=== PATIENT | female | born 1990 | race African-American/Black ===

== ENCOUNTER 2017-08-12 22:31 | Emergency (ER) | payer SELFPAY ==
[~2017-08-12] VITALS: Ht 170.2 cm; Wt 74.8 kg
--- OUTSIDE RECORDS SUMMARY | 2017-08-12 22:33 | XMS REPORT | Clinical Summary ---
Author Author [facility] Organization [facility] Address Unknown Phone Unavailable Care Team Providers Care [employer] Sales Counter Manager Name Role Phone Asked, Pcp PCP Unavailable Allergies No Known Allergies Current Medications Prescription Sig. Disp. Refills Start End Date Status Date traMADol (ULTRAM) 50 mg Take 50 mg by mouth every Active tablet 6 (six) hours as needed for moderate pain. pantoprazole (PROTONIX) Take 1 tablet (20 mg 30 tablet 0 09/05/19 Discontin 20 MG EC tablet total) by mouth daily for 17 17 ued 30 days. ondansetron (ZOFRAN) 4 MG Take 1 tablet (4 mg 120 tablet 0 09/05/19 09/15/19 Discontin tablet total) by mouth every 8 17 17 ued (eight) hours as needed for nausea or vomiting for up to 30 days. traMADol (ULTRAM) 50 mg Take 1 tablet (50 mg 9 tablet 0 09/05/19 tablet total) by mouth every 6 17 17 (six) hours as needed for moderate pain for up to 3 days. omeprazole (PriLOSEC) 10 Take 20 mg by mouth 02/06/20 09/15/19 Discontin MG capsule daily. 16 17 ued ciprofloxacin (CIPRO) 500 Take 1 tablet (500 mg 14 tablet 0 09/08/19 09/17/19 Discontin MG tablet total) by mouth 2 (two) 17 17 ued times a day for 7 days. Lactobacillus Take 1 packet (1 g total) 90 packet 0 09/08/19 Discontin acidoph-L.bulgar by mouth 3 (three) times 17 17 ued (LACTINEX) 100 million a day for 30 days. cell tablet metroNIDAZOLE (FLAGYL) Take 1 tablet (500 mg 21 tablet 0 09/08/19 Discontin 500 MG tablet total) by mouth 3 (three) 17 17 ued times a day for 7 days. acetaminophen-codeine Take 1 tablet by mouth 40 tablet 0 09/08/19 Discontin (TYLENOL WITH CODEINE #3) every 4 (four) hours as ued 300-30 mg per tablet needed for moderate pain for up to 15 days. ondansetron ODT Take 1 tablet (4 mg 10 tablet 0 09/17/19 09/20/19 (ZOFRAN-ODT) 4 MG total) by mouth every 6 17 disintegrating (six) hours as needed for tabletIndications: nausea or vomiting for up Intractable vomiting with to 3 days. nausea, unspecified vomiting type QUEtiapine (SEROquel) 25 Take 0.5 tablets (12.5 mg 8 tablet 0 10/02/19 MG tablet total) by mouth every morning for 15 days. QUEtiapine (SEROquel) 25 Take 0.5 tablets (12.5 mg 8 tablet 0 10/02/19 MG tablet total) by mouth daily for 17 15 days. QUEtiapine (SEROquel) 25 Take 1 tablet (25 mg 15 tablet 0 09/17/19 10/02/19 MG tablet total) by mouth nightly for 15 days. lansoprazole (PREVACID) Take 1 capsule (30 mg 30 capsule 0 02/08/20 03/09/20 30 MG capsule total) by mouth daily for 17 30 days. sucralfate (CARAFATE) 100 Take 10 mL (1 g total) by 1200 mL 0 03/09/20 mg/mL suspension mouth 4 (four) times a day for 30 days. famotidine (PEPCID) 20 MG Take 1 tablet (20 mg 30 tablet 0 02/08/20 02/23/20 tablet total) by mouth 2 (two) times a day for 15 days. ondansetron ODT Take 1 tablet (4 mg 15 tablet 0 02/08/20 02/13/20 (ZOFRAN-ODT) 4 MG total) by mouth every 8 disintegrating tablet (eight) hours as needed for nausea or vomiting for up to 5 days. ondansetron ODT (ZOFRAN Take 1 tablet (8 mg 30 tablet 0 03/12/20 ODT) 8 MG disintegrating total) by mouth every 8 17 17 tablet (eight) hours as needed for nausea or vomiting for up to 30 days. metoclopramide (REGLAN) Take 1 tablet (10 mg 30 tablet 0 03/12/20 10 MG tablet total) by mouth every 6 17 17 (six) hours for 30 days. dicyclomine (BENTYL) 20 Take 1 tablet (20 mg 60 tablet 0 03/12/20 mg tablet total) by mouth 2 (two) 17 17 times a day for 30 days. Active Problems Problem Noted Date Major depressive disorder with single episode 09/15/2016 Intractable nausea and vomiting 09/05/2016 Proctocolitis without complication 09/05/2016 Marijuana abuse 06/15/2016 Intractable cyclical vomiting with nausea 06/13/2016 Bilious vomiting with nausea 01/29/2016 Encounters Date Type Specialty Care Team Description 03/11/2017 Emergency Emergency Medicine Mendez Matamoros MD Psychogenic vomiting with - nausea (Primary Dx) 03/12/2017 02/07/2017 Emergency Emergency Medicine Steve Victor MD Nausea and vomiting, intractability of vomiting not specified, unspecified vomiting type (Primary Dx); Gastroparesis 02/05/2017 Emergency Emergency Medicine 09/17/2016 Documentation General Dentist/Owner Carey Werner LPC 09/16/2016 Documentation Psychiatry Laurie Fish MD 09/14/2016 Emergency General Internal Medicine Jalen Weinstein Intractable vomiting with - MD Benigno nausea, unspecified 09/16/2016 Reji Coughlin MD vomiting type (Primary Dx); Generalized abdominal pain; Marijuana abuse 09/07/2016 Abstract General Internal Medicine Kimberly Godfrey RN 09/05/2016 Emergency Emergency Medicine 09/04/2016 [facility] General Internal Medicine Yoseph Pope MD Intractable abdominal - Encounter Cholo Santiago MD pain (Primary Dx); 09/07/2016 Gastroesophageal reflux disease without esophagitis; Gastroparesis; Intractable vomiting with nausea, unspecified vomiting type; Dehydration; Metabolic acidosis; Lactic acidosis; Leukocytosis, unspecified type after 08/11/2016 Family History Medical History Relation Name Comments Cancer Maternal Grandfather Diabetes Maternal Grandmother Relation Name Status Comments Father appendicitis, acid reflux Maternal Grandfather Maternal Grandmother Social History Tobacco Use Types Packs/Day Years Used Date Current Some Day Smoker Alcohol Use Drinks/Week oz/Week Comments Yes occassionally Sex Assigned at Date Recorded Not on file Last Filed Vital Signs Vital Sign Reading Time Taken Blood Pressure 130/105 03/11/2017 6:32 PM CDT Pulse 69 03/11/2017 6:32 PM CDT Temperature 36.7 C (98.1 F) 03/11/2017 6:32 PM CDT Respiratory Rate 22 03/11/2017 6:32 PM CDT Oxygen Saturation 99% 03/11/2017 6:32 PM CDT Inhaled Oxygen - - Concentration Weight 69.8 kg (153 lb 15.9 oz) 09/14/2016 4:18 PM CDT Height 170.2 cm (5' 7") 02/07/2017 1:18 AM CDT Body Mass Index 24.12 09/14/2016 4:18 PM CDT Plan of Treatment Health Maintenance Due Date Last Done Comments PAP SMEAR 2013 INFLUENZA VACCINE 01/19/2017 Results * US Gallbladder (03/12/2017 4:05 AM) Specimen Performing Laboratory [facility] [place] [address] Narrative Examination:US GALLBLADDER Clinical History: CHOLELITHIASIS Comparison: None. Findings: Gallbladder ultrasound was performed. There is no evidence of gallstone. No gallbladder wall thickening is seen. The common bile duct measures 0.3 cm. The portal vein is patent. IMPRESSION: 1. Unremarkable gallbladder ultrasound. [facility]-[id number] Procedure Note Interface, Radiology Results Incoming - 03/12/2017 4:09 AM CDT Examination: US GALLBLADDER Clinical History: CHOLELITHIASIS Comparison: None. Findings: Gallbladder ultrasound was performed. There is no evidence of gallstone. No gallbladder wall thickening is seen. The common bile duct measures 0.3 cm. The portal vein is patent. IMPRESSION: 1. Unremarkable gallbladder ultrasound. [facility]-[id number] * CT Renal Stone Protocol (03/12/2017 1:55 AM) Specimen Performing Laboratory [facility] [address] [place] [address] RENAL STONE PROTOCOL CLINICAL INDICATION:r o right kindey stone TECHNIQUE: Multidetector CT of the abdomen and pelvis was performed without intravenous administration of iodinated contrast with multiplanar reformats. CT scans are performed using radiation dose reduction techniques (iterative reconstruction and/or automated exposure control). Technical factors are evaluated and adjusted to ensure appropriate moderation of exposure. Automated dose management technology is applied to adjust radiation exposure while achieving a diagnostic quality image. COMPARISON:None. FINDINGS: Lung bases:Clear. Liver:Normal. Gallbladder and biliary:Normal. Pancreas:Normal. Spleen:Normal. Gastrointestinal:Large and small bowel are normal in caliber. Appendix is visualized and appears normal. Adrenals:Normal. Kidneys and ureters:No mass or hydronephrosis. Urinary bladder:Normal. Lymph nodes:No enlarged lymph nodes in the abdomen or pelvis. Peritoneum:No ascites or free air. Trace physiologic fluid within the pelvis. Vascular:Unremarkable. Reproductive organs:Uterus is normal. Unremarkable adnexae. Abdominal wall:Unremarkable. Bones:No acute osseous abnormalities. IMPRESSION: Negative CT for acute pathology within the abdomen and pelvis. [facility]-[id number] Procedure Note [facility], Radiology Results Incoming - 03/12/2017 2:[address] RENAL STONE PROTOCOL CLINICAL INDICATION: r o right kindey stone TECHNIQUE: Multidetector CT of the abdomen and pelvis was performed without intravenous administration of iodinated contrast with multiplanar reformats. CT scans are performed using radiation dose reduction techniques (iterative reconstruction and/or automated exposure control). Technical factors are evaluated and adjusted to ensure appropriate moderation of exposure. Automated dose management technology is applied to adjust radiation exposure while achieving a diagnostic quality image. COMPARISON: None. FINDINGS: Lung bases: Clear. Liver: Normal. Gallbladder and biliary: Normal. Pancreas: Normal. Spleen: Normal. Gastrointestinal: Large and small bowel are normal in caliber. Appendix is visualized and appears normal. Adrenals: Normal. Kidneys and ureters: No mass or hydronephrosis. Urinary bladder: Normal. Lymph nodes: No enlarged lymph nodes in the abdomen or pelvis. Peritoneum: No ascites or free air. Trace physiologic fluid within the pelvis. Vascular: Unremarkable. Reproductive organs: Uterus is normal. Unremarkable adnexae. Abdominal wall: Unremarkable. Bones: No acute osseous abnormalities. IMPRESSION: Negative CT for acute pathology within the abdomen and pelvis. [facility]-[id number] * XR Abdomen 1 Vw (03/11/2017 10:16 PM) Specimen Performing Laboratory [facility] [address] [place] [address] Narrative Examination:XR ABDOMEN 1 VW Clinical History: ABDOMINAL PAIN Comparison: None. Findings: Single frontal view of the abdomen is obtained. The bowel gas pattern is nonspecific but nonobstructive. No bowel dilatation is seen. No free air is seen. Metallic umbilical piercing is noted. IMPRESSION: 1. Nonspecific but nonobstructive bowel gas pattern. [facility]-[id number] Procedure Note Interface, Radiology Results Incoming - 03/11/2017 10:28 PM CDT Examination: XR ABDOMEN 1 VW Clinical History: ABDOMINAL PAIN Comparison: None. Findings: Single frontal view of the abdomen is obtained. The bowel gas pattern is nonspecific but nonobstructive. No bowel dilatation is seen. No free air is seen. Metallic umbilical piercing is noted. IMPRESSION: 1. Nonspecific but nonobstructive bowel gas pattern. [facility]-[id number] * Urinalysis screen and microscopy, with reflex to culture (03/11/2017 8:45 PM) Only the most recent of 3 results within the time period is included. Component Value Ref Range Specimen site Clean catch Color, UA Straw Appearance, UA Hazy Specific gravity, UA 1.018 1.001 - 1.035 pH, UA 8.0 5.0 - 8.5 Protein, UA Negative Negative Glucose, UA Negative Negative Ketones, UA Negative Negative Bilirubin, UA Negative Negative Blood, UA Negative Negative Nitrite, UA Negative Negative Urobilinogen, UA <2.0 <2.0 Leukocyte esterase, UA Negative Negative Epithelial cells, UA 4 /HPF WBC, UA 1 0 - 4 /HPF RBC, UA 1 0 - 2 /HPF Bacteria, UA Few None seen Yeast, UA None seen Yeast with pseudohyphae, None seen UA Specimen Performing Laboratory Urine [facility] DEPARTMENT OF PATHOLOGY AND GENOMIC MEDICINE [address] [place] [address] * Estimated GFR (03/11/2017 8:45 PM) Only the most recent of 8 results within the time period is included. Component Value Ref Range GFR Non Af Amer >90 mL/min/1.73 m2 GFR Af Amer >90 mL/min/1.73 m2 Comment: Chronic kidney disease: <60 mL/min/1.73m2 Kidney failure: <15 mL/min/1.73m2 The estimated GFR is calculated from the IDMS-traceable Modification of Diet in Renal Disease Equation. The accuracy of the calculation is poor when the creatinine is normal. Calculated values >90 mL/min/1.73m2 are not reported. This equation has not been validated in children (<18 years), women, the elderly (>70 years), or ethnic groups other than Caucasians and Americans. Specimen Performing Laboratory Plasma specimen [facility] DEPARTMENT OF PATHOLOGY AND GENOMIC MEDICINE [address] [place] [id number] * Urine drugs of abuse screen (03/11/2017 8:45 PM) Component Value Ref Range Amphetamine screen, urine Negative Barbiturate screen, urine Negative Benzodiazepine screen, Negative urine Cannabinoid screen, urine Positive (A) Cocaine screen, urine Negative Methadone metabolite Negative (EDDP), urine Opiates screen, urine Negative Oxycodone screen, urine Negative Phencyclidine screen, Negative urine Tricyclic screen, urine Negative Comment: Drug screen minimum concentration of detectability Amphetamines 1000 ng/mL Barbiturates 200 ng/mL Benzodiazepines 300 ng/mL Cocaine 300 ng/mL Methadone 3 00 ng/mL Opiates 300 ng/mL Oxycodone 3 00 ng/mL Phencyclidine 25 ng/mL Cannabinoids 50 ng/mL Tricyclics 1000 ng/mL Negative test results indicates presumptive evidence of lack of clinically significant drug concentration in this urine specimen. Positive test results are presumptive evidence of clinically significant drug concentration in this urine specimen. Testing performed for medical purposes only. Specimen Performing Laboratory Urine [facility] DEPARTMENT OF PATHOLOGY AND GENOMIC MEDICINE [address] [place] [id number] * CBC with platelet and differential (03/11/2017 8:45 PM) Only the most recent of 8 results within the time period is included. Component Value Ref Range WBC 11.78 (H) 4.50 - 11.00 k/uL RBC 5.20 4.20 - 5.50 m/uL HGB 13.5 12.0 - 16.0 g/dL HCT 40.1 37.0 - 47.0 % MCV 77.1 (L) 82.0 - 100.0 fL MCH 26.0 (L) 27.0 - 34.0 pg MCHC 33.7 31.0 - 37.0 g/dL RDW - SD 37.8 37.0 - 55.0 fL MPV 12.1 8.8 - 13.2 fL Platelet count 304 150 - 400 k/uL Nucleated RBC 0.00 /100 WBC Neutrophils 90.3 (H) 39.0 - 69.0 % Lymphocytes 5.8 (L) 25.0 - 45.0 % Monocytes 3.1 0.0 - 10.0 % Eosinophils 0.0 0.0 - 5.0 % Basophils 0.3 0.0 - 1.0 % Immature granulocytes 0.5Comment: "Immature granulocytes" 0.0 - 1.0 % (promyelocytes, myelocytes, metamyelocytes) Specimen Performing Laboratory Blood [facility] DEPARTMENT OF PATHOLOGY AND [facility] MEDICINE [address] [place] [address] * Urine culture (03/11/2017 8:45 PM) Only the most recent of 3 results within the time period is included. Component Value Ref Range Urine culture SEE COMMENTComment: Bacteriuria screen negative. Specimen Performing Laboratory [facility] [place] [address] * hCG qualitative, serum screen (03/11/2017 8:45 PM) Only the most recent of 3 results within the time period is included. Component Value Ref Range hCG qualitative, serum NegativeComment: Sensitivity of HCG test: 25 mIU/mL Specimen Performing Laboratory Blood [facility] [place] [address] * Lipase level (03/11/2017 8:45 PM) Only the most recent of 3 results within the time period is included. Component Value Ref Range Lipase 20 13 - 60 U/L Specimen Performing Laboratory Plasma specimen [facility] [place] [address] * Lactic acid level (03/11/2017 8:45 PM) Only the most recent of 3 results within the time period is included. Component Value Ref Range Lactic acid 2.4 (H) 0.5 - 2.2 mmol/L Specimen Performing Laboratory Plasma specimen [facility] [place] [address] * Amylase level (03/11/2017 8:45 PM) Only the most recent of 2 results within the time period is included. Component Value Ref Range Amylase 26 13 - 53 U/L Specimen Performing Laboratory Plasma specimen [facility] [place] [address] * Comprehensive metabolic panel (03/11/2017 8:45 PM) Only the most recent of 4 results within the time period is included. Component Value Ref Range Sodium 137 135 - 148 mEq/L Potassium 3.6 3.5 - 5.0 mEq/L Chloride 105 98 - 112 mEq/L CO2 17 (L) 24 - 31 mEq/L Anion gap 15 7 - 15 mEq/L Comment: Starting from September , anion gap calculation no longer incorporates potassium. Please note the change. BUN 6 6 - 20 mg/dL Creatinine 0.7 0.5 - 0.9 mg/dL Glucose 122 (H) 65 - 99 mg/dL Calcium 9.0 8.3 - 10.2 mg/dL Protein 7.3 6.3 - 8.3 g/dL Comment: [place] 4.6-7.0 g/dL 1 week 4.4-7.6 g/dL 7 months-1year 5.1-7.3 g/dL 1-2 years 5.6-7.5 g/dL >3 years 6.0-8.0 g/dL 18-150 6.3-8.3 g/dL Albumin 2.7 (L) 3.5 - 5.0 g/dL A/G ratio 0.6 (L) 0.7 - 3.8 Alkaline phosphatase 74 35 - 104 U/L AST 18 10 - 35 U/L ALT 15 5 - 50 U/L Total bilirubin 0.5 0.0 - 1.2 mg/dL Specimen Performing Laboratory Plasma specimen [facility] DEPARTMENT OF PATHOLOGY AND GENOMIC MEDICINE [address] [place] [address] * hCG quantitative, serum (02/07/2017 3:33 AM) Component Value Ref Range hCG quantitative, serum <1 0 - 5 mIU/mL Comment: Reference range for HCG Quant applies to males and non- females. Post Menopausal 0.0 - 8.1 mIU/mL Specimen Performing Laboratory Plasma specimen [facility] DEPARTMENT OF PATHOLOGY AND GENOMIC MEDICINE [address] [place] [phone] * NM Gastric Emptying (09/16/2016 10:22 AM) Specimen Performing Laboratory [address] [address] Narrative Procedure:NM GASTRIC EMPTYING Clinical History:intractable nausa Technique 0.8 millicuries of [id number] colloid were mixed with an egg and cooked. The egg was fed to the patient and dynamic imaging of the abdomen in the anterior and posterior projections was performed for 90 minutes. Quantification of gastric emptying was performed using the geometric mean of the anterior and posterior projections. FINDINGS: Gastric emptying half time=54 minutes (normal is <100 minutes). Please note that delayed imaging was not obtained, as gastric imaging was more than 90% completed by 90 minutes. IMPRESSION: Normal gastric emptying. [facility]-[id number] Procedure Note [facility], Radiology Results Incoming - 09/16/2016 11:06 AM CDT Procedure: NM GASTRIC EMPTYING Clinical History: intractable nausa Technique 0.8 millicuries of [id number] colloid were mixed with an egg and cooked. The egg was fed to the patient and dynamic imaging of the abdomen in the anterior and posterior projections was performed for 90 minutes. Quantification of gastric emptying was performed using the geometric mean of the anterior and posterior projections. FINDINGS: Gastric emptying half time=54 minutes (normal is <100 minutes). Please note that delayed imaging was not obtained, as gastric imaging was more than 90% completed by 90 minutes. IMPRESSION: Normal gastric emptying. [facility]-[id number] * Thyroid stimulating hormone (09/15/2016 4:00 AM) Component Value Ref Range TSH 0.36 0.27 - 4.20 uIU/mL Specimen Performing Laboratory Plasma specimen [facility] DEPARTMENT OF PATHOLOGY AND GENOMIC MEDICINE [address] [place] [address] * T4, free (09/15/2016 4:00 AM) Component Value Ref Range T4, free 1.3 0.9 - 1.7 ng/dL Specimen Performing Laboratory Plasma specimen [facility] DEPARTMENT OF PATHOLOGY AND GENOMIC MEDICINE [address] [place] [id number] * Creatine kinase, total (CPK) (09/15/2016 4:00 AM) Only the most recent of 3 results within the time period is included. Component Value Ref Range Creatine kinase 131 26 - 192 U/L Specimen Performing Laboratory Plasma specimen [facility] DEPARTMENT OF PATHOLOGY AND GENOMIC MEDICINE [address] [place] [phone] * Basic metabolic panel (09/15/2016 4:00 AM) Only the most recent of 4 results within the time period is included. Component Value Ref Range Sodium 137 135 - 148 mEq/L Potassium 3.1 (L) 3.5 - 5.0 mEq/L Chloride 102 98 - 112 mEq/L CO2 20 (L) 24 - 31 mEq/L Anion gap 15 7 - 15 mEq/L Comment: Starting from September , anion gap calculation no longer incorporates potassium. Please note the change. BUN 6 6 - 20 mg/dL Creatinine 0.8 0.5 - 0.9 mg/dL Glucose 90 65 - 99 mg/dL Calcium 8.5 8.3 - 10.2 mg/dL Specimen Performing Laboratory Plasma specimen [facility] DEPARTMENT OF PATHOLOGY AND [facility] MEDICINE [address] [place] [address] * ECG 12 lead (09/14/2016 8:50 PM) Component Value Ref Range Ventricular rate 102 Atrial rate 102 ME interval 192 QRSD interval 72 QT interval 330 QTC interval 430 P axis 1 72 QRS axis 1 59 T wave axis 54 EKG impression Sinus tachycardia-Otherwise normal ECG-In automated comparison with ECG of 14-JUN-2016 01:46,-premature atrial complexes are no longer present- Specimen Performing Laboratory [facility] MUSE [address] [place] [address] * Troponin (09/14/2016 2:20 PM) Component Value Ref Range Troponin <0.30 0.00 - 0.30 ng/mL Comment: 0.30 - 1.49 ng/ml May indicate increased risk of acute coronary syndrome. >=1.5 ng/ml Consistent with acute myocardial infarction. The diagnostic value of a single normal or non-diagnostic result is questionable. Serial samples at 2-6 hour intervals are required to rule out acute myocardial injury. Specimen Performing Laboratory Plasma specimen [facility] DEPARTMENT OF PATHOLOGY AND [facility] MEDICINE [address] [place] [id number] * XR Abdomen Acute Inc Chest (09/14/2016 12:44 PM) Specimen [facility] [address] [place] [id number] Narrative XR ABDOMEN ACUTE INC CHEST Reason for examination:ABDOMINAL PAIN FINDINGS: The cardiac silhouette is normal in size. The pulmonary vasculature is within normal limits. The lung zones have no focal area of consolidation. There is no pleural effusion or pneumothorax. Flat and upright views of the abdomen are submitted. There is no evidence of any bowel obstruction nor any dilated loops of bowel. Bowel gas scattered throughout the abdomen. IMPRESSION: 1. There is no acute cardiopulmonary disease. 2. There is no evidence of any pneumoperitoneum or obstruction. Procedure Note [facility], Radiology Results Incoming - 09/14/2016 12:51 PM CDT XR ABDOMEN ACUTE INC CHEST Reason for examination: ABDOMINAL PAIN FINDINGS: The cardiac silhouette is normal in size. The pulmonary vasculature is within normal limits. The lung zones have no focal area of consolidation. There is no pleural effusion or pneumothorax. Flat and upright views of the abdomen are submitted. There is no evidence of any bowel obstruction nor any dilated loops of bowel. Bowel gas scattered throughout the abdomen. IMPRESSION: 1. There is no acute cardiopulmonary disease. 2. There is no evidence of any pneumoperitoneum or obstruction. * ALT (SGPT) (09/14/2016 12:10 PM) Component Value Ref Range ALT 22 5 - 50 U/L Specimen Performing Laboratory Plasma specimen [facility] DEPARTMENT OF PATHOLOGY AND GENOMIC MEDICINE [address] [place] [address] * AST (SGOT) (09/14/2016 12:10 PM) Component Value Ref Range AST 43 (H) 10 - 35 U/L Specimen Performing Laboratory Plasma specimen [facility] DEPARTMENT OF PATHOLOGY AND [facility] MEDICINE [address] [place] [address] * Potassium level (09/14/2016 12:10 PM) Component Value Ref Range Potassium 4.8Comment: Specimen is slightly hemolyzed. 3.5 - 5.0 mEq/L Interpret results accordingly. Specimen Performing Laboratory Plasma specimen [facility] DEPARTMENT OF PATHOLOGY AND GENOMIC MEDICINE [address] [place] [address] * Alkaline phosphatase (09/14/2016 12:10 PM) Component Value Ref Range Alkaline phosphatase 48 35 - 104 U/L Specimen Performing Laboratory Plasma specimen [facility] DEPARTMENT OF PATHOLOGY AND GENOMIC MEDICINE [address] [place] [address] * Partial thromboplastin time, activated (09/14/2016 10:15 AM) Component Value Ref Range PTT 24.1 23.0 - 36.0 sec Comment: PTT therapeutic range for unfractionated heparin is 61.0-112.0 seconds which corresponds to Anti-Xa 0.3-0.7 U/ml. Specimen Performing Laboratory Blood [facility] DEPARTMENT OF PATHOLOGY AND [facility] MEDIC[facility] [address] [place] [address] * Prothrombin time with INR (09/14/2016 10:15 AM) Component Value Ref Range Prothrombin time 13.2 12.0 - 15.0 sec INR 1.0 Comment: The International Normalized Ratio (INR) is a therapeutic monitoring tool for patients who are stable on oral anticoagulant therapy. An INR of 2.0-3.0 is suggested for deep vein thrombosis/pulmonary embolism. Specimen Performing Laboratory Blood [facility] DEPARTMENT OF PATHOLOGY AND [facility] [address] [place] [address] * Phosphorus level (09/07/2016 4:00 AM) Only the most recent of 2 results within the time period is included. Component Value Ref Range Phosphorus 3.9 2.4 - 4.5 mg/dL Specimen Performing Laboratory Plasma specimen [facility] [place]MENT [place] [address] * Magnesium level (09/07/2016 4:00 AM) Only the most recent of 3 results within the time period is included. Component Value Ref Range Magnesium 2.3 1.6 - 2.6 mg/dL Specimen Performing Laboratory Plasma specimen [facility] [place] [address] * Salmonella/shigella culture (09/06/2016 10:40 AM) Component Value Ref Range Salmonella/shigella No Aeromonas isolated culture isolate Absence of normal enteric fox. Comment: Specimen Information Specimen Source: Stool Specimen Site: Nonpreserved Specimen Performing Laboratory Stool - Nonpreserved [facility] [place] [place] [address] * Gastrointestinal panel (09/06/2016 10:40 AM) Component Value Ref Range Gastrointestinal panel Negative for all pathogens tested: Negative for Salmonella Negative for Campylobacter Negative for Diarrheagenic E coli/Shigella Negative for Shiga-like toxin-producing E coli Negative for Plesiomonas shigelloides Negative for Yersinia enterocolitica Negative for Vibrio species Negative for Clostridium difficile (Toxin A/B) Negative for Cryptosporidium Negative for Giardia lamblia Negative for Cyclospora cayeteanensis Negative for Entamoeba histolytica Negative for Adenovirus F 40/41 Negative for Astrovirus Negative for Norovirus GI/GII Negative for Rotavirus A Negative for Sapovirus Negative for Clostridium difficile toxin Negative for E coli 0157 This real-time PCR assay detects the presence of nucleic acids (RNA or DNA) for the gastrointestinal pathogens listed. A result of "Not-detected" does not exclude the possibility of the presence of one or more pathogens at concentrations less than the detectable limits of the assay. Comment: Specimen Information Specimen Source: Stool Specimen Site: Nonpreserved Specimen Performing Laboratory Stool - Nonpreserved [facility] DEPARTMENT OF PATHOLOGY AND GENOMIC MEDICINE [address] [place] [id number] * Hepatitis acute panel (09/05/2016 3:50 AM) Component Value Ref Range Hepatitis A IgM Non-reactive Non-reactive Hepatitis B core IgM Non-reactive Non-reactive Hepatitis B surface Ag Non-reactive Non-reactive Hepatitis C Ab Non-reactive Non-reactive Specimen Performing Laboratory Serum [facility] DEPARTMENT OF PATHOLOGY AND GENOMIC MEDICINE [address] [place] [id number] * CT Abdomen Pelvis W Contrast (09/04/2016 10:01 PM) Specimen Performing Laboratory [facility] [address] [place] [id number] Narrative EXAMINATION:CT ABDOMEN PELVIS W CONTRAST CLINICAL HISTORY:ABDOMINAL PAIN TECHNIQUE: Multiple axial images of the abdomen and pelvis were obtained following intravenous administration of iodinated contrast. Sagittal and coronal computerized reformatted images were also obtained. DOSE REDUCTION: CT imaging was performed with iterative reconstruction technique and/or automated exposure control to reduce radiation dose. COMPARISON:CT abdomen pelvis January 29, 2016 IMPRESSION: ABDOMEN: Mild diffuse wall thickening of the colon and rectum and mild pericolonic fat stranding are consistent with proctocolitis, whether infectious or inflammatory in etiology. No evidence of gastrointestinal obstruction. Appendix is partially visualized, normal in diameter, and contains air. Liver, spleen, pancreas, adrenals, kidneys, gallbladder, and pancreaticobiliary system are unremarkable. Aorta is normal in appearance. Superior mesenteric artery and portal venous system are patent. Circumaortic left renal vein, a normal anatomic variant. No adenopathy, free fluid, or fluid collection. PELVIS: No solid mass or adenopathy. Uterus, adnexa, and bladder are unremarkable. Trace free fluid. No fluid collection. OTHER: Heart is normal in size lung bases are clear. No pericardial or pleural effusion. [facility]-[id number] Procedure Note Interface, Radiology Results Incoming - 09/04/2016 10:32 PM CDT EXAMINATION: CT ABDOMEN PELVIS W CONTRAST CLINICAL HISTORY: ABDOMINAL PAIN TECHNIQUE: Multiple axial images of the abdomen and pelvis were obtained following intravenous administration of iodinated contrast. Sagittal and coronal computerized reformatted images were also obtained. DOSE REDUCTION: CT imaging was performed with iterative reconstruction technique and/or automated exposure control to reduce radiation dose. COMPARISON: CT abdomen pelvis January 29, 2016 IMPRESSION: ABDOMEN: Mild diffuse wall thickening of the colon and rectum and mild pericolonic fat stranding are consistent with proctocolitis, whether infectious or inflammatory in etiology. No evidence of gastrointestinal obstruction. Appendix is partially visualized, normal in diameter, and contains air. Liver, spleen, pancreas, adrenals, kidneys, gallbladder, and pancreaticobiliary system are unremarkable. Aorta is normal in appearance. Superior mesenteric artery and portal venous system are patent. Circumaortic left renal vein, a normal anatomic variant. No adenopathy, free fluid, or fluid collection. PELVIS: No solid mass or adenopathy. Uterus, adnexa, and bladder are unremarkable. Trace free fluid. No fluid collection. OTHER: Heart is normal in size lung bases are clear. No pericardial or pleural effusion. [facility]-[id number] * hCG qualitative, urine screen (09/04/2016 6:09 PM) Component Value Ref Range hCG qualitative, urine NegativeComment: Sensitivity of HCG test: 25 mIU/mL Specimen Performing Laboratory Urine [facility] DEPARTMENT OF PATHOLOGY AND GENOMIC MEDICINE [address] [place] [phone] Narrative Specimen must be received in the laboratory within 2 hours of collection. Specimen Source->Urine * Gram stain (09/04/2016 6:09 PM) Component Value Ref Range Gram stain isolate Rare WBC's Many Gram positive rods Comment: Specimen Information Specimen Source: Urine Specimen Site: See UA Specimen Performing Laboratory Urine [facility] DEPARTMENT OF PATHOLOGY AND GENOMIC MEDICINE [address] [place] [id number] Narrative Specimen must be received in the laboratory within 2 hours of collection. Specimen Source->Urine after 08/11/2016
[2017-08-12] MEDS ORDERED: MAGNESIUM/ALUMINUM/SIMETHICONE 30 ML UDC PO ONE (22:45)
[2017-08-12] MEDS ORDERED: LIDOCAINE VISC 2% SOLN 15 ML UDC PO ONE (22:45)
[2017-08-12] MEDS ORDERED: PROMETHAZINE HCL (IM) 25 MG/ML VIAL IM ONE (22:45)
[2017-08-12] MEDS ORDERED: MORPHINE SULFATE 2 MG/ML SYR IV STA (23:37)
[2017-08-13] MEDS ORDERED: BELLADONNA ALK/PHENOBARBITAL 5 ML UDC PO ONE (00:30)
[2017-08-13] MEDS ORDERED: PROMETHAZINE HCL (IM) 25 MG/ML VIAL IM ONE (01:15)
[2017-08-13 01:50] VITALS: BP 140/72
== END 2017-08-13 01:51 | disposition home or self-care (01) ==
LOC: FSED 22:31
DX: R10.13 Epigastric pain (principal); R11.2 Nausea with vomiting, unspecified; R19.7 Diarrhea, unspecified
CPT/HCPCS: 74176; 80048; 80076; 81003; 81025; 85025; 96372 ×2; 96374; 99283; J2270; J2550